=== PATIENT | male | born 1990 ===

== ENCOUNTER 2018-03-29 02:21 | Emergency (ER) | payer BC ==
--- NOTE | 2018-03-29 02:32 | C.PDOC ---
History Of Present Illness 27 year old male presents to the ED for evaluation of mid-epigastric abdominal pain which worsened tonight. Patient denies fever, chills, nausea, vomiting, decrease in PO intake. Time Seen by Provider: 03/29/18 02:31 History Per: Patient History/Exam Limitations: no limitations Onset/Duration Of Symptoms: Hrs Current Symptoms Are (Timing): Worse Context: Other (unknown ) Severity: Mild Pain Scale Rating Of: 1 Location Of Pain/Discomfort: Epigastric (mid) Radiation Of Pain To:: None Quality Of Discomfort: "Pain" Associated Symptoms: denies: Fever, Chills, Nausea, Vomiting Exacerbating Factors: None Alleviating Factors: None Last Bowel Movement: Today Recent travel outside of the [place]: No Additional History Per: Patient Past Medical History Reviewed: Historical Data, Nursing Documentation, Vital Signs - Medical History PMH: Asthma Surgical History: No Surg Hx Family History: States: Unknown Family Hx - Social History Hx Tobacco Use: No Hx Alcohol Use: Yes Hx Substance Use: No - Immunization History Hx Tetanus Toxoid Vaccination: No Hx Influenza Vaccination: Yes Hx Pneumococcal Vaccination: No Review Of Systems Constitutional: Negative for: Fever, Chills Gastrointestinal: Positive for: Abdominal Pain (mid-epigastric ). Negative for: Nausea, Vomiting Physical Exam - Physical Exam Appears: Non-toxic, No Acute Distress Skin: Warm, Dry Head: Normacephalic Eye(s): bilateral: Normal Inspection Oral Mucosa: Moist Neck: Supple Chest: Symmetrical, No Deformity, No Tenderness Cardiovascular: Rhythm Regular Respiratory: No Rales, No Rhonchi, No Wheezing Gastrointestinal/Abdominal: Soft, Tenderness (mid-epigastric ), No Guarding, No Rebound Extremity: Normal ROM, Capillary Refill (less than 2 seconds ) Neurological/Psych: Oriented x3 ED Course And Treatment - Laboratory Results Result Diagrams: 03/29/18 03:05 03/29/18 03:05 O2 Sat by Pulse Oximetry: 96 (on RA) Pulse Ox Interpretation: Normal Progress Note: Bloodwork and urinalysis ordered and reviewed. Protonix IVP and IV Fluids given. Disposition Counseled Patient/Family Regarding: Studies Performed, Diagnosis, Need For Follo wup - Disposition Referrals: Andrew Tyler MD [Medical Doctor] - Disposition: HOME/ ROUTINE Disposition Time: 02:31 Condition: FAIR Additional Instructions: Please return if symptoms recur Prescriptions: Ondansetron ODT [Zofran ODT] 1 odt PO BID PRN #6 odt PRN Reason: Nausea/Vomiting Instructions: Acute Abdomen (Belly Pain), Adult (DC) - Clinical Impression Clinical Impression: Abdominal pain, Nausea - Scribe Statement The provider has reviewed the documentation as recorded by the Scribe (Karena Carrizales) Provider Attestation: All medical record entries made by the Scribe were at my direction and personally dictated by me. I have reviewed the chart and agree that the record accurately reflects my personal performance of the history, physical exam, medical decision making, and the department course for this patient. I have also personally directed, reviewed, and agree with the discharge instructions and disposition.
[2018-03-29 02:35] VITALS: BMI 30.3
[2018-03-29] MEDS ORDERED: Sodium Chloride 0.9% 1,000 ML IV ONE (02:35)
[2018-03-29 03:10] LABS: SQUAMOUS EPITHIAL < 1 /hpf (0-5); URINE BILIRUBIN NEGATIVE (NEGATIVE); URINE BLOOD NEGATIVE (NEGATIVE); URINE CLARITY Clear (Clear); URINE COLOR Yellow (YELLOW); URINE GLUCOSE (UA) NORMAL (Normal); URINE LEUKOCYTE ESTERASE NEG Leu/uL (Negative); URINE PROTEIN NEGATIVE (NEGATIVE)
[2018-03-29 03:14] LABS: BASO # 0.1 K/uL (0.0-0.2); BASO % 0.7 % (0.0-2.0); EOS # 0.2 K/uL (0.0-0.7); HEMOGLOBIN 16.2 g/dL (12.0-18.0); LYMPH # 3.1 K/uL (1.0-4.3); LYMPH % 32.6 % (20.0-40.0); MEAN CELL VOLUME 88.5 fL (80.0-94.0); MEAN CORPUSCULAR HEMOGLOBIN 30.7 pg (27.0-31.0); MEAN CORPUSCULAR HGB CONC 34.7 g/dL (33.0-37.0); MEAN PLATELET VOLUME 7.9 fL (7.2-11.7); MONO # 0.7 K/uL (0.0-0.8); MONO % 7.2 % (0.0-10.0); NEUT # 5.5 K/uL (1.8-7.0); NEUT % 57.5 % (50.0-75.0); NRBC % 0.1 % (0.0-2.0); RBC 5.29 Mil/uL (4.40-5.90); RED CELL DISTRIBUTION WIDTH 13.4 % (11.5-14.5); WHITE BLOOD COUNT 9.5 K/uL (4.8-10.8)
[2018-03-29 03:23] LABS: ALB/GLOB RATIO 1.4 (1.0-2.1); ALBUMIN 4.4 g/dL (3.5-5.0); ALT/SGPT 123 U/L (21-72); AST/SGOT 48 U/L (17-59); BLOOD UREA NITROGEN 20 mg/dL (9-20); CALCIUM 9.5 mg/dl (8.6-10.4); GFR NON-AFRICAN AMERICAN > 60; LIPASE 218 U/L (23-300)
[2018-03-29] MEDS ORDERED: Iodixanol 320 MG/ML 100 ML BOTTLE IV ONE (03:50)
[2018-03-29 04:32] VITALS: BP 117/69; PULSE 79; RESP 18; TEMP 97.9
[2018-03-29 05:05] VITALS: O2SAT 96
--- NOTE | 2018-03-29 09:25 | CT ---
CT abdomen and pelvis HISTORY: Abdominal pain. COMPARISON: None available. TECHNIQUE: Multiple contiguous axial images were performed through the abdomen and pelvis with the use of intravenous contrast. Subsequently, sagittal and coronal reformatted images were obtained. This CT exam was performed using one or more of the following dose reduction techniques: Automated exposure control, adjustment of the mA and/or kV according to patient size, and/or use of iterative reconstruction technique. Findings: Mild atelectasis at the lung bases. No pleural or pericardial effusion. Mild fatty infiltration of the liver. Gallbladder is preserved. Spleen is preserved. Adrenal glands are preserved. Pancreas is preserved. Upper abdominal bowel demonstrates a few mildly distended fluid-filled loops of small bowel in the upper mid abdomen. Right kidney: Upper pole 1.5 centimeter low-attenuation lesion demonstrating a Hounsfield unit attenuation 15, indeterminate, possibly a cyst. Correlation with renal ultrasound may be helpful. No gross hydronephrosis. Left Kidney: No gross calculi or hydronephrosis. Urinary bladder is preserved. Prostate and seminal vesicles are preserved. Fecal retention in the colon. Appendix is within normal limits. Few shotty para-aortic and inguinal lymph nodes. Shotty mesenteric lymph nodes. Small fat containing umbilical hernia Mild degenerative changes in the spine. Impression: 1. Mild fatty infiltration of the liver. 2. Upper pole 1.5 centimeter low-attenuation right renal lesion demonstrating a Hounsfield unit attenuation of 15, indeterminate, possibly a cyst. Correlation with renal ultrasound may be helpful if clinically indicated. 3. Few mildly distended fluid-filled loops of small bowel in the upper mid abdomen. This may represent a mild enteritis. Clinical correlation. Additional findings as above. A preliminary report was generated at 4:35 a.m. on 03/29/[address] Carmelo Woodruff from [facility].
== END 2018-03-29 05:16 | disposition home or self-care (01) ==
LOC: C.ER 02:21
DX: R10.13 Epigastric pain (principal); R11.0 Nausea
CPT/HCPCS: 74177; 80053; 81001; 83690; 85025; 96361; 96374; 99284; C9113; J7030; Q9967